=== PATIENT | male | born 1960 | race Native Hawaiian/Other Pacific Islander ===

== ENCOUNTER 2023-03-06 08:26 | Outpatient (CLI) | payer OTHER | END 2023-03-06 19:56 | disposition home or self-care (01) | LOC: NM 08:26 | PROVIDERS: ATTEND Physician Assistant | DX: C41.2 Malignant neoplasm of vertebral column (principal) | CPT/HCPCS: A9561 ==

== ENCOUNTER 2023-07-01 13:13 | Emergency (ER) | payer OTHER ==
[~2023-07-01] VITALS: Ht 180.3 cm; Wt 68.0 kg
[2023-07-01 13:40] LABS: PLATELET COUNT 202 K/uL (142-355)
[2023-07-01 13:45] LABS: POTASSIUM 3.7 mmol/L (3.6-5.2)
[2023-07-01] MEDS ORDERED: SODIUM CHLORIDE 0.9% 1,000 ML IV ONE ×2 (13:47→13:48)
[2023-07-01] MEDS ORDERED: Ondansetron HCl 4 MG INJ INJ ONE (13:47)
[2023-07-01 13:58] LABS: PARTIAL THROMBOPLASTIN TIME 29.5 SECONDS (23.9-36.7)
[2023-07-01 15:15] VITALS: BP 149/88; TEMP 98.2
== END 2023-07-01 15:15 | disposition home or self-care (01) ==
LOC: ED 13:13
PROVIDERS: Family Medicine
DX: R10.11 Right upper quadrant pain (principal); R06.02 Shortness of breath; R11.2 Nausea with vomiting, unspecified; R07.89 Other chest pain; E86.0 Dehydration; F10.10 Alcohol abuse, uncomplicated; K29.70 Gastritis, unspecified, without bleeding
CPT/HCPCS: 80053; 82150; 82550; 83690; 84484; 85027; 85610; 85730; 93005; 96361; 96374; 99284; J2405